=== PATIENT | female | born 1980 | race Caucasian/White ===

== ENCOUNTER 2024-12-03 06:57 | Day surgery (SDC) | payer OTHER, SELFPAY ==
[2024-12-03] VITALS (17 sets, daily range): BP systolic 102–148; BP diastolic 47–93; BMI 39.8
[2024-12-03 08:00] LABS: Hematocrit 39.2 % (37.0-47.0); Hemoglobin 13.3 g/dL (12.0-16.0); Mean Corp Hgb Conc. 33.9 g/dL (33.0-37.0); Mean Corpuscular Hgb 29.4 pg (27.0-31.0); Mean Corpuscular Volume 86.5 fL (81.0-99.0); Mean Platelet Volume 9.1 fL (7.4-10.4); Platelet Count 222 10^3/uL (130-400); Red Blood Cell Count 4.53 10^6/uL (4.20-5.40); Red Cell Dist. Width 13.1 % (11.5-14.5); White Blood Cell Count 6.3 10^3/uL (4.8-10.8)
[2024-12-03 08:11] LABS: PT 15.7 Sec (11.4-14.6)
[2024-12-03 08:15] LABS: ALT (SGPT) 26 U/L (0-35); AST (SGOT) 31 U/L (14-36); Albumin 4.4 g/dl (3.5-5.0); Alkaline Phosphatase 61 U/L (38-126); Blood Urea Nitrogen 22 mg/dl (7-17); Calcium 8.4 mg/dl (8.4-10.2); Carbon Dioxide 28 mmol/L (22-30); Chloride 102 mmol/L (98-107); Estimated Creatinine Clearance > 125 ml/min; Glucose 111 mg/dl (70-99); Magnesium 1.9 mg/dl (1.6-2.3); Potassium 4.1 mmol/L (3.5-5.1); Sodium 139 mmol/L (135-145); Total Bilirubin 1.3 mg/dl (0.2-1.3); Total Protein 7.8 g/dl (6.3-8.2); eGFR > 60.00
[2024-12-03 11:13] LABS: ACT-LR - POC 281 Seconds (116-155)
[2024-12-03 11:30] LABS: ACT-LR - POC 284 Seconds (116-155)
--- NOTE | 2024-12-03 11:56 | ITS.CL.ABL ---
Director Oracle - Ablation
Ablation
Procedure Report:
ELECTROPHYSIOLOGY ABLATION STUDY
DATE:: December 03, 2024����������������������������
INDICATION: Persistent supraventricular tachycardia in the form of atrial fibrillation.��Prior CTI flutter ablation at outside hospital with atrial fibrillation post CTI flutter ablation
HISTORY: See H and P.��As above
ANTIARRHYTHMIC DRUG: Metoprolol
PRE-PROCEDURE SHARMILA: No interatrial thrombus
PRESENTING RHYTHM: Persistent atrial fibrillation
'TIME-OUT':��called and confirmed.
SEDATION/ANESTHESIA:��provided via the anesthesia department using general anesthesia (LMA).
INTRAVENOUS/ARTERIAL ACCESS:
Right femoral venous - 8Fr
Left femoral venous - 8 Fr, 6 Fr
[id number] stitch bilaterally to the femoral veins. Serial dilation of the right femoral vein was required to allow the Saida drive sheath up into the right atrium including serial dilation with an 8 Rwandan dilator, 14 Rwandan dilator and the
first half of an 18 Rwandan dilator.
Ultrasound guidance for bilateral femoral vein access was utilized by me to obtain access with demonstration of normal anatomy
CHADS-VASC Score:
0.2 mg of glycopyrrolate were given after transseptal
HAS-Bled Score
PROCEDURE:
1.��A decapolar CS catheter was placed within the CS for mapping and pacing.��This was also used as the reference catheter for the 3-D map. Post spontaneous cardioversion to sinus rhythm during ablation of the left atrial posterior wall and the
pulmonary veins sheaths and catheters were removed back to the right atrium to assess the prior CTI flutter ablation. From the tricuspid valve back through a quite prominent and elevated eustachian ridge there was absence of voltage at the 6
o'clock position on the CTI. Pacing from the coronary sinus and from laterally to this line of ablation demonstrated bidirectional block at 120 to 130 ms bilaterally. There was a small atrial signal on the right ventricular side of the annulus
which was present from septal to lateral although as it was quite ventricular and there was evidence for bidirectional block along the isthmus from the tricuspid valve back through the eustachian ridge. As such no further ablation was performed.
We did perform aggressive atrial stimulation with extrastimuli and burst pacing down to refractoriness with with noninducibility of any tachyarrhythmia. After this sheath and catheters were then removed. Left atrial placement as described below.
2. The intracardiac ultrasound catheter was positioned in the RA to identify the FO for targeting of transseptal puncture, assist��in identification of the pulmonary vein ostia, monitoring pre and post ablation pulmonary vein flow velocities,
monitoring for 'bubble' formation during RF application as a sign of thermal injury,��and to monitor for pericardial effusion during mapping and ablation procedure.���Left atrial size, LV ejection fraction, and pulmonary vein flows were monitored
pre and post ablation procedure. The other valves were inspected and found to be free of significant regurgitation or stenosis.
3.��Half of the calculated heparin bolus was administered prior to the first transeptal puncture.��Transseptal puncture was performed to diagnose RA and LA pressure so that safety of LA mapping and ablation could be further assessed, and to access
the left atrium and pulmonary veins for mapping and ablation.��This entailed advancing an 16.8 Rwandan sheath wire and dilator into the superior vena cava and withdrawing both (monitoring intracardiac ultrasound, fluoroscopy and tip pressure) with
the tip oriented toward the atrial septum.��The fossa ovalis was engaged (indicated by sudden displacement of the sheath tip as well as tenting of the fossa seen on intracardiac ultrasound).��Left atrial access required a pass with the [place]
needle extended.��Left atrial catheter position was confirmed by pressure monitoring (RA mean pressure 8 mm Hg and LA mean presure 14 mm Hg), LA saturation (99%),��as well as fluoroscopy.��The sheath was advanced over the dilator and positioned in
the left atrium.����The remainder of the calculated heparin bolus was administered and heparin was
infused to maintain ACT at 300 -350 seconds throughout the case.
4.��RA pacing was performed via the proximal decapolar poles and LA pacing was performed via the distal decapolar poles.
5. A quadrapolar catheter was first positioned at the His position for His Bundle recording which was tagged via the 3-D Navx sytem, and then passed to the RVA for RV pacing and recording.
6. The multipolar catheter and the PFA catheter placed in each of the LIPV, LSPV, RSPV and the RIPV.��
7.��Next, a 3-D map was created using Navex.���A 3-D reconstructed CT image was compared to the 3-D Navex map to assist in anatomic interpretation, mapping and ablation.��The CT image and the NavX image were fused.
8. A total of 65 lesions were given to the pulmonary veins, left atrial floor roof and posterior wall. [place] and basket were given to each of the 4 pulmonary veins with entrance exit block and in flower pose the roof floor and left atrial
posterior wall were addressed. The patient did convert to sinus rhythm during ablation of the posterior wall. She converted to sinus bradycardia.
9. Normal sinus node and AV ailyn function were noted.
TOTAL FLOURO TIME: 16 minutes 143 mGy
TOTAL RF DURATION: 0 minutes
REVERSAL OF HEPARIN: 40 mg of protamine, slow IV administration
COMPLICATIONS:
None
Intracardiac US shows no pericardial effusion post ablation.
SUMMARY:��
Complex left atrial mapping and ablation.
Isolation of all 4 pulmonary veins as well as left atrial floor roof and posterior wall.
RECOMMENDATIONS:
1. Admit to monitored bed.��
2. Resume anticoagulation
3.��Continue current medications
4.��Consider discharge on December 04, 2024
Copy to: Rocio Easton MD, MORENO Smith at [facility] in [place]
[2024-12-03] MEDS: TYLENOL 650 MG PO ×2 (13:01→17:07)
--- NOTE | 2024-12-03 14:16 | PTCARENOTE ---
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 Precautions reviewed. B/L groin soft and dry with figure eight sutures. +2 pedal pulses. NSR/SB, VSS, headache resolved, call quintana in reach
--- NOTE | 2024-12-03 15:18 | CM ---
Chart reviewed. Patient is independent of ADLS, lives alone in a apartment, 3rd floor, elevator access, 0 DME. Plan is for the patient to return home. CM to follow
--- NOTE | 2024-12-03 16:25 | PTCARENOTE ---
Removed figure 8 sutures, dressing CDI.
[2024-12-03] MEDS: DIOVAN 80 MG PO (17:07)
[2024-12-03] MEDS: MAALOX 30 ML PO (17:07)
[2024-12-03] MEDS: XARELTO 20 MG PO (19:10)
[2024-12-03] MEDS: LOPRESSOR 75 MG PO (20:13)
[2024-12-03 20:32] LABS: Glucose - Point of Care 209 mg/dl (70-99)
--- NOTE | 2024-12-03 21:21 | PTCARENOTE ---
Addendum entered by Yakelin Turcios RN 12/04/24 06:01:
Left arm tremors and numbness resolved. Maalox given for mid chest discomfort with positive result. pt resting comfortable
Original Note:
Pt c/o left arm tremors and finger tips numbness. VSS, BS 205 stroke test performed. noticed slight left hand tremors. CVPA notified and assessed the pt. No new orders at this time.
[2024-12-04 03:01] VITALS: BP 124/64
[2024-12-04 03:43] LABS: Glucose - Point of Care 127 mg/dl (70-99)
[2024-12-04 04:08] VITALS: BMI 40.2
[2024-12-04 04:10] LABS: Hematocrit 36.1 % (37.0-47.0); Hemoglobin 11.9 g/dL (12.0-16.0); Mean Corpuscular Hgb 29.2 pg (27.0-31.0); Mean Corpuscular Volume 88.5 fL (81.0-99.0); Mean Platelet Volume 9.6 fL (7.4-10.4); Platelet Count 242 10^3/uL (130-400); Red Blood Cell Count 4.08 10^6/uL (4.20-5.40); Red Cell Dist. Width 13.3 % (11.5-14.5)
[2024-12-04] MEDS: MAALOX 30 ML PO (04:12)
[2024-12-04 04:33] LABS: Blood Urea Nitrogen 23 mg/dl (7-17); Calcium 9.1 mg/dl (8.4-10.2); Carbon Dioxide 26 mmol/L (22-30); Chloride 99 mmol/L (98-107); Estimated Creatinine Clearance > 125 ml/min; Glucose 117 mg/dl (70-99); Magnesium 2.3 mg/dl (1.6-2.3); Potassium 4.8 mmol/L (3.5-5.1); Sodium 135 mmol/L (135-145); eGFR > 60.00
[2024-12-04 08:26] VITALS: BP 124/101
[2024-12-04] MEDS: LOPRESSOR PO ×2 (09:18→09:25)
[2024-12-04] MEDS: ALDACTONE 25 MG PO (09:18)
--- NOTE | 2024-12-04 09:41 | PTCARENOTE ---
HR 54, Dominga Virgen aware, Lopressor 75 mg po held this morning. Dose decreased to 50 mg BID, Pt to start tonight.
--- NOTE | 2024-12-04 09:54 | W.PN.CARDCBS ---
Addendum entered and electronically signed by Maximiliano Dior MD 12/04/24 12:39:
patient seen and examined
agree with MARKETING ADMINISTRATIVE ASSISTANT note and assessment
agree with MARKETING ADMINISTRATIVE ASSISTANT plan
exam:
right groin dressing with small blood stained area
no active oozing
cor regular
lungs ctab
remainder of exam as per MARKETING ADMINISTRATIVE ASSISTANT note
Impression:
Symptomatic persistent Afib
prior CTI flutter ablation 01/2024
post PVI, PW and LA roof line ablation 12/03/24
JEFF/CPAP
HTN
GERD
Anemia
Depression/Anxiety
h/o UTI
Morbid obesity BMI 40
Plan:
post ablation, SR/SB
R groin with some old drainage, dressing change no active bleeding
continue OAC Xarelto
[id number] = 2
with HR 40-60's will decrease metoprolol to 50mg bid starting tonight
continue valsartan, spironolactone for HTN
Activity restrictions reviewed-discussed work restriction of 7-10 days
reviewed the pillars of afib, reinforced wt loss, CPAP compliance, ETOH cessation
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
tele health with Dr. Dior in 3mo
continue cardiac care in with [employer]
home today
Original Note:
Today's Communication / Plan
-
post ablation, decrease metoprolol
stable for d/c home
Impression / Plan
-
Primary care physician: Rocio Easton MD
Primary tree trimming supervisor: MORENO Chi
Impression:
Symptomatic persistent Afib
prior CTI flutter ablation 01/2024
post PVI, PW and LA roof line ablation 12/03/24
JEFF/CPAP
HTN
GERD
Anemia
Depression/Anxiety
h/o UTI
Morbid obesity BMI 40
Plan:
post ablation, SR/SB
R groin with some old drainage, dressing change no active bleeding
continue OAC Xarelto
[id number] = 2
with HR 40-60's will decrease metoprolol to 50mg bid starting tonight
continue valsartan, spironolactone for HTN
Activity restrictions reviewed
reviewed the pillars of afib, reinforced wt loss, CPAP compliance, ETOH cessation
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
tele health with Dr. Dior in 3mo
continue cardiac care in with [employer]
home today
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
Subjective
Date of Service: December 04, 2024
denies cp, sob, mild sore throat
Objective
Labs:
12/04/24 03:33
12/04/24 03:33
Labs
Hgb 11.9 g/dL (12.0-16.0) L 12/04/24 03:33
Hct 36.1 % (37.0-47.0) L 12/04/24 03:33
Plt Count 242 10^3/uL (130-400) 12/04/24 03:33
PT 15.7 Sec (11.4-14.6) H 12/03/24 07:34
INR 1.20 12/03/24 07:34
Sodium 135 mmol/L (135-145) 12/04/24 03:33
Potassium 4.8 mmol/L (3.5-5.1) 12/04/24 03:33
BUN 23 mg/dl (7-17) H 12/04/24 03:33
Creatinine 0.6 mg/dL (0.6-1.0) 12/04/24 03:33
Glucose 117 mg/dl (70-99) H 12/04/24 03:33
Vital Signs and I&O:
Vital Signs
Temp Pulse Resp BP Pulse Ox
98.4 F 57 20 124/64 96
12/04/24 07:00 12/04/24 09:25 12/04/24 07:00 12/04/24 03:01 12/04/24 07:00
Vital Signs
Temp Pulse Resp BP Pulse Ox
98.4 F 57 20 124/64 96
12/04/24 07:00 12/04/24 09:25 12/04/24 07:00 12/04/24 03:01 12/04/24 07:00
Intake & Output
12/02/24 12/03/24 12/04/24 12/05/24
06:59 06:59 06:59 06:59
Intake Total 2940 / 2940
Output Total 300 / 300
Balance 2640 / 2640
Physical Exam
Physical Exam
NAD< AOX3
S1, S2, RRR
CTAB, non labored, diminished bases b/l, no wheeze
SNTND bsx4
R fem site old drainage, soft, dressing changed, L fem site c/d/i soft
--- NOTE | 2024-12-04 11:57 | W.DS.TRANS ---
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
-
Discharge Instructions:
Discharge Diagnosis/Procedures Atrial fibrillation post ablation
Diet Low Cholesterol
Driving Restrictions No driving for 24 hours
Instructions:
Stand-Alone Forms: DC Instructions- Cath/EP Lab
Return to Work
Changes to Home Medications: Yes
Discharge Medications:
DC Medications w/original date entered in [facility]
citalopram 40 mg tablet 40 mg PO DAILY Depression 12/03/24
furosemide 40 mg tablet (Lasix) 40 mg PO DAILY PRN voiding issues 12/03/24
omeprazole 20 mg capsule,delayed release 20 mg PO DAILY PRN stomach gers 12/03/24
rivaroxaban 20 mg tablet (Xarelto) 20 mg PO DAILY blood thinner 12/03/24
spironolactone 25 mg tablet 25 mg PO DAILY htn 12/03/24
valsartan 80 mg capsule 80 mg PO DAILY htn 12/03/24
metoprolol tartrate 75 mg tablet 50 mg (0.6667 x 75 mg) PO BID htn #0 tabs 12/04/24
Home Medication Changes
decrease metoprolol to 50bid
Pending Results: No
== END 2024-12-04 10:23 | disposition home or self-care (01) ==
LOC: CATH 06:57
PROVIDERS: Nurse Practitioner Adult Health; ATTENDING PHYSICIAN Internal Medicine Cardiovascular Disease
DX: I48.19 Other persistent atrial fibrillation (principal); Z79.01 Long term (current) use of anticoagulants; I47.10 Supraventricular tachycardia, unspecified; I08.1 Rheumatic disorders of both mitral and tricuspid valves; F32.A Depression, unspecified; I10 Essential (primary) hypertension; K21.9 Gastro-esophageal reflux disease without esophagitis; G47.33 Obstructive sleep apnea (adult) (pediatric); D64.9 Anemia, unspecified; Z87.440 Personal history of urinary (tract) infections; E66.01 Morbid (severe) obesity due to excess calories; Z68.41 Body mass index [BMI] 40.0-44.9, adult; F41.9 Anxiety disorder, unspecified; I45.10 Unspecified right bundle-branch block; Z88.0 Allergy status to penicillin; I48.92 Unspecified atrial flutter
CPT/HCPCS: 93312; 93320; 93325; C1732; C1894; C1730; C1769; C1892; C1759; 80048; 80053; 82962; 83735; 85027; 85347; 85610; 86850; 86900; 86901; 93005; 93656; 93657; C1733; C1766